=== PATIENT | male | born 1985 ===

== ENCOUNTER 2018-06-14 12:22 | Inpatient (IN) | payer SELFPAY ==
[2018-06-14] MEDS ORDERED: ATIVAN IV ONE ×2 (14:03→16:12)
--- NOTE | 2018-06-14 14:13 | Emergency Department Report ---
ED Seizure HPI - General Chief Complaint: Seizure Stated Complaint: SEIZURE/FALL Time Seen by Provider: 06/14/18 13:56 Source: patient, EMS Mode of arrival: Stretcher Limitations: Language Barrier - History of Present Illness Initial Comments: 33-year-old male with a past medical history of alcohol abuse presents to the hospital with complaint of new onset seizure. witnessed seizure. Patient followed onto the ground. No urinary incontinence. Mild tongue abrasion. Patient drinks beer daily. Last drink was yesterday. He was trying to decrease his alcohol intake. History of alcohol withdrawal tremors but no history of previous seizures. Patient complains of mild pain to the left side of his neck worse with movement. He denies headache, focal weakness, or numbness. - Related Data Allergies Allergy/AdvReac Type Severity Reaction Status Date / Time No Known Allergies Allergy Unverified 06/14/18 13:16 ED Review of Systems ROS: Stated complaint: SEIZURE/FALL Other details as noted in HPI Comment: All other systems reviewed and negative ED Past Medical Hx - Social History Smoking Status: Former Smoker Substance Use Type: Alcohol ED Physical Exam - General Limitations: Language Barrier - Other Other exam information: General: No limitations, patient is alert in no acute distress Head exam: Atraumatic, normocephalic Eyes exam: Normal appearance, pupils equal reactive to light, extraocular movements intact ENT: Moist mucous membrane, right lateral tongue abrasion Neck exam: Normal inspection, full range of motion, no meningismus nontender Respiratory exam: Clear to auscultation bilateral, no wheezes, rales, crackles Cardiovascular: Normal rate and rhythm, normal heart sounds Abdomen: Soft, nondistended, and nontender, with normal bowel sounds, no rebound, or guarding Extremity: Full range of motion normal inspection no deformity Back: Normal Inspection, full range of motion, no tenderness Neurologic: Alert, oriented x3, cranial nerves intact, no motor or sensory deficit, tremor noted Psychiatric: normal affect, normal mood Skin: Warm, dry, intact ED Course Vital Signs 06/14/18 13:11 Temperature 97.6 F Pulse Rate 74 Respiratory 18 Rate Blood Pressure 140/90 O2 Sat by Pulse 98 Oximetry - Reevaluation(s) Reevaluation #1: 06/14/18 18:22 pt developing delerium and therefore will be admitted ED Medical Decision Making - Lab Data Result diagrams: 06/14/18 13:54 06/14/18 13:54 Lab Results 06/14/18 06/14/18 06/14/18 Range/Units 13:54 13:54 14:19 WBC 4.2 L (4.5-11.0) K/mm3 RBC 4.17 (3.65-5.03) M/mm3 Hgb 14.2 (11.8-15.2) gm/dl Hct 42.2 (35.5-45.6) % MCV 101 H (84-94) fl MCH 34 H (28-32) pg MCHC 34 (32-34) % RDW 14.4 (13.2-15.2) % Plt Count 101 L (140-440) K/mm3 Sodium 137 (137-145) mmol/L Potassium 4.3 (3.6-5.0) mmol/L Chloride 96.5 L (98-107) mmol/L Carbon Dioxide 26 (22-30) mmol/L Anion Gap 19 mmol/L BUN 9 (9-20) mg/dL Creatinine 0.5 L (0.8-1.5) mg/dL Estimated GFR > 60 ml/min BUN/Creatinine Ratio 18 % Glucose 130 H (75-100) mg/dL Calcium 9.6 (8.4-10.2) mg/dL Magnesium 2.40 H (1.7-2.3) mg/dL Plasma/Serum Alcohol (0-0.07) % 06/14/18 Range/Units 14:19 WBC (4.5-11.0) K/mm3 RBC (3.65-5.03) M/mm3 Hgb (11.8-15.2) gm/dl Hct (35.5-45.6) % MCV (84-94) fl MCH (28-32) pg MCHC (32-34) % RDW (13.2-15.2) % Plt Count (140-440) K/mm3 Sodium (137-145) mmol/L Potassium (3.6-5.0) mmol/L Chloride (98-107) mmol/L Carbon Dioxide (22-30) mmol/L Anion Gap mmol/L BUN (9-20) mg/dL Creatinine (0.8-1.5) mg/dL Estimated GFR ml/min BUN/Creatinine Ratio % Glucose (75-100) mg/dL Calcium (8.4-10.2) mg/dL Magnesium (1.7-2.3) mg/dL Plasma/Serum Alcohol < 0.01 (0-0.07) % - EKG Data -: EKG Interpreted by Me EKG shows normal: sinus rhythm (68), axis (qrs 1), QRS complexes (qrsd 103), ST- T waves (no stemi/t inv) - EKG Data When compared to previous EKG there are: previous EKG unavailable - Radiology Data Radiology results: report reviewed CT head: No acute findings CT cervical spine non-contrast: No acute fracture - Medical Decision Making Patient given Ativan for elevated CIWA protocol. One hour post Ativan patient continues to have tremors and now is more agitated and delirious. States years 1985. Will be admitted to the hospitalist service for alcohol withdrawal seizures and delirium tremens. will continue CIWA protocol - Differential Diagnosis seizure, alcohol withdrawal, ICH, intracranial mass, electrolyte abnormalit Critical Care Time: No Critical care attestation.: If time is entered above; I have spent that time in minutes in the direct care of this critically ill patient, excluding procedure time. ED Disposition Clinical Impression: Alcohol withdrawal seizure, Alcohol dependence, Alcoholic delirium Disposition: OP ADMIT IP TO THIS HOSP Is pt being admited?: Yes Condition: Stable Time of Disposition: 18:22 (Dr adams/hosp)
[2018-06-14 14:14] LABS: Hematocrit 42.2 % (35.5-45.6); Hemoglobin 14.2 gm/dl (11.8-15.2); Mean Corpuscular HGB Conc 34 % (32-34); Mean Corpuscular Volume 101 fl (84-94); Platelet Count 101 K/mm3 (140-440); Red Blood Count 4.17 M/mm3 (3.65-5.03); Red Cell Distribution Width 14.4 % (13.2-15.2)
[2018-06-14 14:32] LABS: BUN/Creatinine Ratio 18; Blood Urea Nitrogen 9 mg/dL (9-20); Calcium 9.6 mg/dL (8.4-10.2); Hemolysis Index 17
--- NOTE | 2018-06-14 14:50 | Cat Scan Report ---
PROCEDURE: CT HEAD/BRAIN WO CON TECHNIQUE: Computerized tomography of the head was performed without contrast material. CT DOSE LENGTH PRODUCT: 928.9 mGycm HISTORY: seizure, fall, etoh withdrawal COMPARISONS: None . FINDINGS: Unenhanced CT of the brain was performed and demonstrates no acute intracranial hemorrhage, extra-axial fluid collection, midline shift or mass effect. The ventricles and basal cisterns are no t effaced. The mastoid air cells and middle ears appear clear. There is no evidence of acute sinusitis. The bony calvarium appears intact. IMPRESSION: No acute intracranial hemorrhage This document is electronically signed by Popeye Goodwin MD., June 14 2018 02:48:33 PM ET
--- NOTE | 2018-06-14 14:52 | Cat Scan Report ---
PROCEDURE: CT CERVICAL SPINE WO CON TECHNIQUE: Computerized tomography of the cervical spine was performed from the skull base to T1 wit hout contrast material. CT DOSE LENGTH PRODUCT: 726.1 mGycm HISTORY: seizure, fall, etoh withdrawal, left neck pain COMPARISONS: None . FINDINGS: Unenhanced CT of the cervical spine was performed and data was reformatted in the sagittal and coronal planes. These images demonstrate no fracture or malalignment of the cervical spine. The prevertebral soft tis sues are within normal limits. There is a vacuum disc at C5-C6. There is endplate remodeling at C5-C6. There is a Schmorl's node in the superior endplate of T3 and there are vacuum discs at T2-T3 and T3-T 4. IMPRESSION: No fracture is seen in the cervical spine This document is electronically signed by Popeye Goodwin MD., June 14 2018 02:50:56 PM ET
[2018-06-14] MEDS ORDERED: VITAMIN B-1 100 MG, FOLVITE 1 MG, INFUVITE 10 ML in NACL 0.9% 1000 ML 1,000 ML IV ONE (15:00)
[2018-06-14] MEDS: ATIVAN IV PRN ×2 (17:12→19:43)
[2018-06-14] MEDS ORDERED: PROVENTIL IH PRN (20:09)
[2018-06-14] MEDS ORDERED: ZOFRAN IV PRN (20:09)
[2018-06-14] MEDS ORDERED: TYLENOL PO PRN (20:09)
[2018-06-14] MEDS ORDERED: SODIUM CHLORIDE FLUSH SYRINGE 10 ML IV PRN (20:09)
[2018-06-14] MEDS ORDERED: THERAGRAN Tab PO ONE ×2 (20:13→22:51)
[2018-06-14] MEDS ORDERED: VITAMIN B-1 PO ONE (20:13)
--- NOTE | 2018-06-14 20:14 | History and Physical Report ---
History of Present Illness Chief complaint: He is confused, and he had a seizure History of present illness: 33 YO Male with ETOH Dependence presents to ED for evaluation. Pt is confused, tremulous and unable to provide detailed history. Pt history provided by his who is at bedside during exam and interview. As per , the patient drinks ETOH daily, but has significantly decreased hit ETOH intake over the pst 1 week. Pt last drink was yesterday. Pt has experienced increasing confusion and tremors over the past 1 day. Pt experienced a generalized seizure today as witnessed by his . Pt was standing, and experienced a fall from a standing position which resulted in an abrasion to the patient's tongue. EMS notified, and uopn arrival the patient was found to be in distress. Pt transported to [facility] ED. Pt seen and evaluated in ED and found to have ETOH Withdrawl complicated by seizure, as well as Encephalopathy. Pt admitted to medical floor, and treated IAW ETOH withdrawl protocol, as well as CIWA protocol. Pt counseled regarding ETOH Cessation. Pt and acknowledges understanding care plan, and agree with plan. No prior admissions for review. No medication listed at time of admission for reconciliatioin. Past History Past Medical History: other (ETOH Dependence) Past Surgical History: No surgical history, Other (reviewed) Social history: , lives with family, alcohol abuse Family history: no significant family history (reviewed) Medications and Allergies Allergies Allergy/AdvReac Type Severity Reaction Status Date / Time No Known Allergies Allergy Unverified 06/14/18 13:16 Active Meds: Active Medications Acetaminophen (Tylenol) 650 mg PO Q4H PRN PRN Reason: Pain MILD(1-3)/Fever >100.5/LEONARD Albuterol (Proventil) 2.5 mg IH Q4HRT PRN PRN Reason: Shortness Of Breath Famotidine (Pepcid) 20 mg PO BID YASMEEN Sodium Chloride (Nacl 0.45% 1000 Ml) 1,000 mls @ 100 mls/hr IV DIRECT YASMEEN Lorazepam (Ativan) 2 mg IV Q1HR PRN PRN Reason: YIFAN-Jeffrey 8-15 Last Admin: 06/14/18 19:43 Dose: 2 mg Documented by: Lorazepam (Ativan) 4 mg IV Q1HR PRN PRN Reason: CIMARLENE-Ar 16- Ondansetron HCl (Zofran) 4 mg IV Q8H PRN PRN Reason: Nausea And Vomiting Sodium Chloride (Sodium Chloride Flush Syringe 10 Ml) 10 ml IV BID YASMEEN Sodium Chloride (Sodium Chloride Flush Syringe 10 Ml) 10 ml IV PRN PRN PRN Reason: LINE FLUSH Review of Systems ROS unobtainable: due to mental status Exam - Constitutional Vitals: Temp Pulse Resp BP Pulse Ox 97.6 F 82 18 136/101 98 06/14/18 13:11 06/14/18 20:03 06/14/18 20:03 06/14/18 20:03 06/14/18 20:03 General appearance: Present: mild distress, disheveled - EENT Eyes: Present: PERRL, miosis ENT: hearing intact, clear oral mucosa - Neck Neck: Present: supple, normal ROM - Respiratory Respiratory effort: normal Respiratory: bilateral: CTA - Cardiovascular Heart Sounds: Present: S1 & S2. Absent: rub, click - Extremities Extremities: pulses symmetrical, No edema Peripheral Pulses: within normal limits - Abdominal General gastrointestinal: Present: soft, non-tender, non-distended, normal bowel sounds Male genitourinary: Present: normal - Integumentary Integumentary: Present: dry, clammy, decreased turgor - Musculoskeletal Musculoskeletal: generalized weakness - Psychiatric Psychiatric: no appropriate mood/affect, no intact judgment & insight, no memory intact, agitated, other (tremulous) - Neurologic Neurologic: CNII-XII intact, no focal deficits, moves all extremities, no gait normal Results - Labs CBC & Chem 7: 06/14/18 13:54 06/14/18 13:54 Labs: Abnormal lab results 06/14/18 06/14/18 06/14/18 Range/Units 13:54 13:54 14:19 WBC 4.2 L (4.5-11.0) K/mm3 MCV 101 H (84-94) fl MCH 34 H (28-32) pg Plt Count 101 L (140-440) K/mm3 Chloride 96.5 L (98-107) mmol/L Creatinine 0.5 L (0.8-1.5) mg/dL Glucose 130 H (75-100) mg/dL Magnesium 2.40 H (1.7-2.3) mg/dL Assessment and Plan - Patient Problems (1) Alcohol withdrawal seizure Current Visit: Yes Status: Acute Qualifiers: Complication of substance-induced condition: with delirium Qualified Code(s): F10.231 - Alcohol dependence with withdrawal delirium Plan to address problem: Banana bag, thiamine folic acid, multivitamin, IVF resuscitation therapy (2) Encephalopathy Current Visit: Yes Status: Acute Plan to address problem: CT Head, neuro checks, aspiration precautions, seizure precautions, treat ETOH withdrawl. (3) Alcohol dependence Current Visit: Yes Status: Acute Qualifiers: Complication of substance-induced condition: with perceptual disturbance Plan to address problem: IVF resuscitation therapy, ETOH cessation counseling, AA F/u at discharge (4) DVT prophylaxis Current Visit: Yes Status: Acute Plan to address problem: SCD to BLE while in bed, Prophylactic lovenox
[2018-06-14] MEDS ORDERED: VITAMIN B-1 ONE (22:52)
[2018-06-14] MEDS: FOLVITE PO SCH (22:55)
[2018-06-14] MEDS: SODIUM CHLORIDE FLUSH SYRINGE 10 ML IV SCH (22:57)
[2018-06-14] MEDS ORDERED: LOVENOX SUB-Q ONE (23:00)
[2018-06-14] MEDS ORDERED: PEPCID ONE (23:00)
[2018-06-14] MEDS: LOVENOX SUB-Q SCH (23:01)
[2018-06-14] MEDS: PEPCID PO SCH (23:01)
[2018-06-15] MEDS ORDERED: ATIVAN ONE ×4 (00:13→01:48)
[2018-06-15] MEDS: ATIVAN IV PRN ×8 (00:20→23:22)
[2018-06-15] MEDS ORDERED: HALDOL IM ONE ×2 (02:14→22:16)
[2018-06-15] MEDS ORDERED: HALDOL ONE (02:17)
[2018-06-15] MEDS: NACL 0.45% 1000 ML 1,000 ML IV SCH ×2 (04:48→15:18)
[2018-06-15 06:34] LABS: BUN/Creatinine Ratio 15; Blood Urea Nitrogen 6 mg/dL (9-20); Calcium 9.4 mg/dL (8.4-10.2); Hemolysis Index 7
--- NOTE | 2018-06-15 10:48 | Progress Note ---
Assessment and Plan Assessment and plan: 33 y.o. male with history of ETOH abuse presented to ED via EMS on 06/14 for evaluation. He was found to be confused, tremulous and unable to provide detailed history. History was provided by his who was at the bed side. As per , the patient drinks ETOH daily, but has significantly decreased his ETOH intake over the past 1 week. Pt last drink was on 06/13. Pt has experienced increasing confusion and tremors over the past 1 day. Pt experienced a generalized seizure on 06/14 as witnessed by his . Pt was standing, and experienced a fall from a standing position which resulted in an abrasion to the patient's tongue. Pt seen and evaluated in ED and found to have ETOH Withdrawl complicated by seizure, as well as Encephalopathy. Pt admitted to medical floor, and treated IAW ETOH withdrawl protocol, as well as CIWA protocol. ETOH Abuse ETOH Withdrawal Encephalopathy Hypokalemia Plan: Continue CIWA Protocol, seizure precautions CT Head on 06/14 did not reveal any acute intracranial hemorrhage CT Cervical Spine on 06/14 did not reveal any cervical spine fractures Replace potassium Continue oral Thiamine and folic acid Monitor electrolytes and replace as needed Continue to encourage ETOH cessation Will need Outpatient f/u with AA DVT PPX- on Lovenox History Interval history: Pt admitted for ETOH abuse/ withdrawal. No reports of seizures overnight. Remains on restraints. Hospitalist Physical - Constitutional Vitals: Temp Pulse Resp BP Pulse Ox 97.5 F L 79 18 149/101 97 06/15/18 04:30 06/15/18 04:30 06/15/18 04:30 06/15/18 04:30 06/15/18 04:30 General appearance: Present: mild distress, disheveled - EENT Eyes: Present: PERRL, EOM intact ENT: hearing intact, dentition normal - Neck Neck: Present: supple - Respiratory Respiratory effort: normal Respiratory: bilateral: CTA - Cardiovascular Heart Sounds: Present: S1 & S2 - Extremities Extremities: no ischemia, pulses intact Peripheral Pulses: within normal limits - Abdominal General gastrointestinal: soft, non-tender, normal bowel sounds - Integumentary Integumentary: Present: warm, dry - Psychiatric Psychiatric: agitated - Neurologic Neurologic: moves all extremities Results - Labs CBC & Chem 7: 06/14/18 13:54 06/15/18 05:20 Labs: Laboratory Last Values WBC 4.2 K/mm3 (4.5-11.0) L 06/14/18 13:54 RBC 4.17 M/mm3 (3.65-5.03) 06/14/18 13:54 Hgb 14.2 gm/dl (11.8-15.2) 06/14/18 13:54 Hct 42.2 % (35.5-45.6) 06/14/18 13:54 MCV 101 fl (84-94) H 06/14/18 13:54 MCH 34 pg (28-32) H 06/14/18 13:54 MCHC 34 % (32-34) 06/14/18 13:54 RDW 14.4 % (13.2-15.2) 06/14/18 13:54 Plt Count 101 K/mm3 (140-440) L 06/14/18 13:54 Sodium 139 mmol/L (137-145) 06/15/18 05:20 Potassium 3.4 mmol/L (3.6-5.0) L D 06/15/18 05:20 Chloride 100.6 mmol/L (98-107) 06/15/18 05:20 Carbon Dioxide 23 mmol/L (22-30) 06/15/18 05:20 Anion Gap 19 mmol/L 06/15/18 05:20 BUN 6 mg/dL (9-20) L 06/15/18 05:20 Creatinine 0.4 mg/dL (0.8-1.5) L 06/15/18 05:20 Estimated GFR > 60 ml/min 06/15/18 05:20 BUN/Creatinine Ratio 15 % 06/15/18 05:20 Glucose 102 mg/dL (75-100) H 06/15/18 05:20 Calcium 9.4 mg/dL (8.4-10.2) 06/15/18 05:20 Magnesium 2.00 mg/dL (1.7-2.3) 06/15/18 05:20 Plasma/Serum Alcohol < 0.01 % (0-0.07) 06/14/18 14:19 Active Medications - Current Medications Current Medications: Generic Name Dose Route Start Last Admin Trade Name Freq PRN Reason Stop Dose Admin Acetaminophen 650 mg 06/14/18 20:09 Tylenol PO Q4H PRN Pain MILD(1-3)/Fever >100.5/LEONARD Albuterol 2.5 mg 06/14/18 20:09 Proventil IH Q4HRT PRN Shortness Of Breath Enoxaparin Sodium 40 mg 06/14/18 22:00 06/14/18 23:01 Lovenox SUB-Q 40 mg QDAY@2200 YASMEEN Administration Famotidine 20 mg 06/14/18 22:00 06/14/18 23:01 Pepcid PO 20 mg BID YASMEEN Administration Folic Acid 1 mg 06/14/18 20:13 06/14/18 22:55 Folvite PO 1 mg QDAY YASMEEN Administration Sodium Chloride 1,000 mls @ 100 mls/hr 06/14/18 21:00 06/15/18 04:48 Nacl 0.45% 1000 Ml IV 100 mls/hr DIRECT YASMEEN Administration Lorazepam 2 mg 06/14/18 14:13 06/15/18 04:40 Ativan IV 2 mg Q1HR PRN Administration CIWA-Ar 8-15 Lorazepam 4 mg 06/14/18 14:13 06/15/18 01:52 Ativan IV 4 mg Q1HR PRN Administration CIWA-Ar 16-25 Ondansetron HCl 4 mg 06/14/18 20:09 Zofran IV Q8H PRN Nausea And Vomiting Potassium Chloride 40 meq 06/15/18 10:44 K-Dur PO 06/15/18 10:45 ONCE ONE Sodium Chloride 10 ml 06/14/18 22:00 06/14/18 22:57 Sodium Chloride Flush Syringe 10 Ml IV 10 ml BID YASMEEN Administration Sodium Chloride 10 ml 06/14/18 20:09 Sodium Chloride Flush Syringe 10 Ml IV PRN PRN LINE FLUSH
[2018-06-15] MEDS: FOLVITE PO SCH (11:09)
[2018-06-15] MEDS: PEPCID PO SCH ×2 (11:09→22:15)
[2018-06-15] MEDS ORDERED: K-DUR PO ONE (12:00)
[2018-06-15] MEDS: SODIUM CHLORIDE FLUSH SYRINGE 10 ML IV SCH ×2 (13:58→22:14)
[2018-06-15] MEDS: VITAMIN B-1 PO SCH (14:00)
[2018-06-15] MEDS: LOVENOX SUB-Q SCH (22:13)
[2018-06-16] MEDS: NACL 0.45% 1000 ML 1,000 ML IV SCH ×3 (03:05→23:08)
[2018-06-16] MEDS: ATIVAN IV PRN ×3 (05:44→23:09)
--- NOTE | 2018-06-16 09:53 | Progress Note ---
<MCKAYLA TAI - Last Filed: 06/16/18 09:53> Assessment and Plan Assessment and plan: 33 y.o. male with history of ETOH abuse presented to ED via EMS on 06/14 for evaluation. He was found to be confused, tremulous and unable to provide detailed history. History was provided by his who was at the bed side. As per , the patient drinks ETOH daily, but has significantly decreased his ETOH intake over the past 1 week. Pt last drink was on 06/13. Pt has experienced increasing confusion and tremors over the past 1 day. Pt experienced a generalized seizure on 06/14 as witnessed by his . Pt was standing, and experienced a fall from a standing position which resulted in an abrasion to the patient's tongue. He was found to have ETOH Withdrawl complicated by seizure, as well as Acute Encephalopathy. Pt admitted to medical floor, and treated for ETOH withdrawl protocol, as well as CIWA protocol. Acute toxic and metabolic Encephalopathy, Delirium Tremens Status Epilepticus Dehydration ETOH Abuse/ dependence ETOH Withdrawal Hypokalemia Plan: Continue CIWA Protocol, seizure precautions CT Head on 06/14 did not reveal any acute intracranial hemorrhage CT Cervical Spine on 06/14 did not reveal any cervical spine fractures Replaced potassium Monitor electrolytes and replace as needed Continue oral Thiamine and folic acid Continue to encourage ETOH cessation Will need Outpatient f/u with AA DVT PPX- on Lovenox History Interval history: Pt admitted for ETOH abuse/ withdrawal. No reports of seizures overnight. He is able tolerate diet. Remains on restraints. There were no acute overnight events. Hospitalist Physical - Constitutional Vitals: Temp Pulse Resp BP Pulse Ox 97.9 F 87 20 135/86 98 06/16/18 04:41 06/15/18 17:00 06/16/18 04:41 06/16/18 04:41 06/15/18 17:00 General appearance: Present: disheveled - EENT Eyes: Present: PERRL, EOM intact ENT: hearing intact, dentition normal - Respiratory Respiratory effort: normal Respiratory: bilateral: CTA - Cardiovascular Heart Sounds: Present: S1 & S2 - Extremities Extremities: pulses intact, No edema Peripheral Pulses: within normal limits - Abdominal General gastrointestinal: soft, non-tender, normal bowel sounds - Integumentary Integumentary: Present: warm, dry - Psychiatric Psychiatric: cooperative - Neurologic Neurologic: moves all extremities Results - Labs CBC & Chem 7: 06/14/18 13:54 06/15/18 05:20 Labs: Laboratory Last Values WBC 4.2 K/mm3 (4.5-11.0) L 06/14/18 13:54 RBC 4.17 M/mm3 (3.65-5.03) 06/14/18 13:54 Hgb 14.2 gm/dl (11.8-15.2) 06/14/18 13:54 Hct 42.2 % (35.5-45.6) 06/14/18 13:54 MCV 101 fl (84-94) H 06/14/18 13:54 MCH 34 pg (28-32) H 06/14/18 13:54 MCHC 34 % (32-34) 06/14/18 13:54 RDW 14.4 % (13.2-15.2) 06/14/18 13:54 Plt Count 101 K/mm3 (140-440) L 06/14/18 13:54 Sodium 139 mmol/L (137-145) 06/15/18 05:20 Potassium 3.4 mmol/L (3.6-5.0) L D 06/15/18 05:20 Chloride 100.6 mmol/L (98-107) 06/15/18 05:20 Carbon Dioxide 23 mmol/L (22-30) 06/15/18 05:20 Anion Gap 19 mmol/L 06/15/18 05:20 BUN 6 mg/dL (9-20) L 06/15/18 05:20 Creatinine 0.4 mg/dL (0.8-1.5) L 06/15/18 05:20 Estimated GFR > 60 ml/min 06/15/18 05:20 BUN/Creatinine Ratio 15 % 06/15/18 05:20 Glucose 102 mg/dL (75-100) H 06/15/18 05:20 Calcium 9.4 mg/dL (8.4-10.2) 06/15/18 05:20 Magnesium 2.00 mg/dL (1.7-2.3) 06/15/18 05:20 Plasma/Serum Alcohol < 0.01 % (0-0.07) 06/14/18 14:19 Active Medications - Current Medications Current Medications: Generic Name Dose Route Start Last Admin Trade Name Freq PRN Reason Stop Dose Admin Acetaminophen 650 mg 06/14/18 20:09 06/15/18 22:13 Tylenol PO 650 mg Q4H PRN Administration Pain MILD(1-3)/Fever >100.5/LEONARD Albuterol 2.5 mg 06/14/18 20:09 Proventil IH Q4HRT PRN Shortness Of Breath Enoxaparin Sodium 40 mg 06/14/18 22:00 06/15/18 22:13 Lovenox SUB-Q 40 mg QDAY@2200 YASMEEN Administration Famotidine 20 mg 06/14/18 22:00 06/15/18 22:15 Pepcid PO 20 mg BID YASMEEN Administration Folic Acid 1 mg 06/14/18 20:13 06/15/18 11:09 Folvite PO 1 mg QDAY YASMEEN Administration Sodium Chloride 1,000 mls @ 100 mls/hr 06/14/18 21:00 06/16/18 03:05 Nacl 0.45% 1000 Ml IV 100 mls/hr DIRECT YASMEEN Administration Lorazepam 2 mg 06/14/18 14:13 06/16/18 05:44 Ativan IV 2 mg Q1HR PRN Administration [facility]-Ar 8-15 Lorazepam 4 mg 06/14/18 14:13 06/15/18 20:49 Ativan IV 4 mg Q1HR PRN Administration [facility]-Ar 16-25 Ondansetron HCl 4 mg 06/14/18 20:09 Zofran IV Q8H PRN Nausea And Vomiting Sodium Chloride 10 ml 06/14/18 22:00 06/15/18 22:14 Sodium Chloride Flush Syringe 10 Ml IV 10 ml BID YASMEEN Administration Sodium Chloride 10 ml 06/14/18 20:09 Sodium Chloride Flush Syringe 10 Ml IV PRN PRN LINE FLUSH Thiamine HCl 100 mg 06/15/18 13:00 06/15/18 14:00 Vitamin B-1 PO 100 mg QDAY YASMEEN Administration <ANTONIA HOWE M - Last Filed: 06/16/18 15:20> Assessment and Plan Assessment and plan: I saw and evaluated the patient. I agree with the findings and the plan of care as documented in the Nurse Practitioner's Mckayla Tai note, with the following corrections and additions. patient is still in DT and will continue the [facility] protocol. Hospitalist Physical - Constitutional Vitals: Temp Pulse Resp BP Pulse Ox 98.3 F 70 16 136/81 98 06/16/18 12:02 06/16/18 12:02 06/16/18 12:02 06/16/18 12:02 06/16/18 12:02 Results - Labs CBC & Chem 7: 06/14/18 13:54 06/16/18 09:47 Labs: Laboratory Last Values WBC 4.2 K/mm3 (4.5-11.0) L 06/14/18 13:54 RBC 4.17 M/mm3 (3.65-5.03) 06/14/18 13:54 Hgb 14.2 gm/dl (11.8-15.2) 06/14/18 13:54 Hct 42.2 % (35.5-45.6) 06/14/18 13:54 MCV 101 fl (84-94) H 06/14/18 13:54 MCH 34 pg (28-32) H 06/14/18 13:54 MCHC 34 % (32-34) 06/14/18 13:54 RDW 14.4 % (13.2-15.2) 06/14/18 13:54 Plt Count 101 K/mm3 (140-440) L 06/14/18 13:54 Sodium 140 mmol/L (137-145) 06/16/18 09:47 Potassium 3.8 mmol/L (3.6-5.0) 06/16/18 09:47 Chloride 101.2 mmol/L (98-107) 06/16/18 09:47 Carbon Dioxide 23 mmol/L (22-30) 06/16/18 09:47 Anion Gap 20 mmol/L 06/16/18 09:47 BUN 9 mg/dL (9-20) 06/16/18 09:47 Creatinine 0.5 mg/dL (0.8-1.5) L 06/16/18 09:47 Estimated GFR > 60 ml/min 06/16/18 09:47 BUN/Creatinine Ratio 18 % 06/16/18 09:47 Glucose 125 mg/dL (75-100) H 06/16/18 09:47 Calcium 9.6 mg/dL (8.4-10.2) 06/16/18 09:47 Magnesium 2.00 mg/dL (1.7-2.3) 06/15/18 05:20 Plasma/Serum Alcohol < 0.01 % (0-0.07) 06/14/18 14:19 Active Medications - Current Medications Current Medications: Generic Name Dose Route Start Last Admin Trade Name Armandoq PRN Reason Stop Dose Admin Acetaminophen 650 mg 06/14/18 20:09 06/15/18 22:13 Tylenol PO 650 mg Q4H PRN Administration Pain MILD(1-3)/Fever >100.5/LEONARD Albuterol 2.5 mg 06/14/18 20:09 Proventil IH Q4HRT PRN Shortness Of Breath Enoxaparin Sodium 40 mg 06/14/18 22:00 06/15/18 22:13 Lovenox SUB-Q 40 mg QDAY@2200 YASMEEN Administration Famotidine 20 mg 06/14/18 22:00 06/16/18 09:58 Pepcid PO 20 mg BID YASMEEN Administration Folic Acid 1 mg 06/14/18 20:13 06/16/18 09:58 Folvite PO 1 mg QDAY YASMEEN Administration Sodium Chloride 1,000 mls @ 100 mls/hr 06/14/18 21:00 06/16/18 14:13 Nacl 0.45% 1000 Ml IV 100 mls/hr DIRECT YASMEEN Administration Lorazepam 2 mg 06/14/18 14:13 06/16/18 10:21 Ativan IV 2 mg Q1HR PRN Administration CIWA-Ar 8-15 Lorazepam 4 mg 06/14/18 14:13 06/15/18 20:49 Ativan IV 4 mg Q1HR PRN Administration CIWA-Ar 16-25 Ondansetron HCl 4 mg 06/14/18 20:09 Zofran IV Q8H PRN Nausea And Vomiting Sodium Chloride 10 ml 06/14/18 22:00 06/16/18 10:21 Sodium Chloride Flush Syringe 10 Ml IV 10 ml BID YASMEEN Administration Sodium Chloride 10 ml 06/14/18 20:09 Sodium Chloride Flush Syringe 10 Ml IV PRN PRN LINE FLUSH Thiamine HCl 100 mg 06/15/18 13:00 06/16/18 09:58 Vitamin B-1 PO 100 mg QDAY YASMEEN Administration
[2018-06-16] MEDS: PEPCID PO SCH ×2 (09:58→22:49)
[2018-06-16] MEDS: VITAMIN B-1 PO SCH (09:58)
[2018-06-16] MEDS: FOLVITE PO SCH (09:58)
[2018-06-16] MEDS: SODIUM CHLORIDE FLUSH SYRINGE 10 ML IV SCH ×2 (10:21→22:50)
[2018-06-16 10:38] LABS: BUN/Creatinine Ratio 18; Blood Urea Nitrogen 9 mg/dL (9-20); Calcium 9.6 mg/dL (8.4-10.2); Hemolysis Index 7
[2018-06-16] MEDS: LOVENOX SUB-Q SCH (22:49)
--- NOTE | 2018-06-17 10:35 | Discharge Summary ---
<DWAYNE TAI - Last Filed: 06/17/18 11:03> Providers - Providers Date of Admission: 06/14/18 20:09 Date of discharge: 06/17/18 Attending physician: ANTONIA HOWE MD 06/17/18 09:41 Physical Therapy Evaluation and Treat [CONS] Routine Comment: Reason For Exam: unsteady gait [facility] Reason for admission: Acute toxic and metabolic Encephalopathy, Condition: Fair Hospital course: 33 y.o. male with history of ETOH abuse presented to ED via EMS on 06/14 for evaluation. He was found to be confused, tremulous and unable to provide detailed history. History was provided by his who was at the bed side. As per , the patient drinks ETOH daily, but has significantly decreased his ETOH intake over the past 1 week. Pt last drink was on 06/13. Pt has experienced increasing confusion and tremors over the past 1 day. Pt experienced a generalized seizure on 06/14 as witnessed by his . Pt was standing, and experienced a fall from a standing position which resulted in an abrasion to the patient's tongue. He was found to have ETOH Withdrawl complicated by seizure, as well as Acute Encephalopathy. Pt admitted to medical floor, and treated for ETOH withdrawl protocol, as well as CIWA protocol. CT Head on 06/14 did not reveal any acute intracranial hemorrhage. CT Cervical Spine on 06/14 did not reveal any cervical spine fractures. He received IVF, and replacement for thiamine, folic acid, and potassium. Pt counseled for 16 minutes regarding alcohol cessation and outpatient AA. Diagnosis Acute toxic and metabolic Encephalopathy, Delirium Tremens Status Epilepticus Dehydration ETOH Abuse/ dependence ETOH Withdrawal Hypokalemia Disposition: DC-01 TO HOME OR SELFCARE Core Measure Documentation - Palliative Care Palliative Care/ Comfort Measures: Not Applicable - Core Measures Any of the following diagnoses?: none - VTE Discharge Requirements Deep Vein Thrombosis/Pulmonary Embolism Present on Admission: No Contraindication No Overlap Therapy order at DC: Not Indicated Exam - Physical Exam Narrative exam: General appearance: Present: no acute distress - EENT Eyes: Present: PERRL, EOM intact ENT: hearing intact, dentition normal - Respiratory Respiratory effort: normal Respiratory: bilateral: CTA - Cardiovascular Heart Sounds: Present: S1 & S2 - Extremities Extremities: mild tremors, pulses intact, No edema Peripheral Pulses: within normal limits - Abdominal General gastrointestinal: soft, non-tender, normal bowel sounds - Integumentary Integumentary: Present: warm, dry - Psychiatric Psychiatric: cooperative - Neurologic Neurologic: moves all extremities - Constitutional Vitals: Temp Pulse Resp BP Pulse Ox 98.4 F 63 20 137/91 95 06/17/18 04:57 06/17/18 04:57 06/17/18 04:57 06/16/18 22:26 06/17/18 04:57 Plan Activity: advance as tolerated, fall precautions Follow up with: CICI CORONEL MD [Primary Care Provider] - 3-5 Days Forms: Work/School Release Form Prescriptions: Folic Acid [Folvite] 1 mg PO QDAY 30 Days #30 tablet chlordiazePOXIDE [Librium] 25 mg PO Q8H 8 Days #26 capsule Thiamine [Vitamin B-1] 100 mg PO QDAY 30 Days #30 tablet <ANTONIA OHWE - Last Filed: 06/19/18 14:14> Providers - Providers Date of Admission: 06/14/18 20:09 Attending physician: ANTONIA HOWE MD [facility] Hospital course: I have evaluated face to face at the time of discharge and agreed with the documentation of SUSU Tai. patient admitted and treated for alcohol withdrawal. Exam - Constitutional Vitals: Temp Pulse Resp BP Pulse Ox 99.0 F 72 16 129/85 96 06/17/18 12:27 06/17/18 12:27 06/17/18 12:27 06/17/18 12:27 06/17/18 12:27
[2018-06-17 10:59] LABS: Alanine Aminotransferase 158 units/L (7-56); Albumin 3.8 g/dL (3.9-5); BUN/Creatinine Ratio 16; Blood Urea Nitrogen 8 mg/dL (9-20); Hemolysis Index 5
[2018-06-17] MEDS: VITAMIN B-1 PO SCH (11:45)
[2018-06-17] MEDS: FOLVITE PO SCH (11:45)
[2018-06-17] MEDS: PEPCID PO SCH (11:45)
[2018-06-17] MEDS: SODIUM CHLORIDE FLUSH SYRINGE 10 ML IV SCH (11:45)
[2018-06-17 12:50] VITALS: BP 129/85
== END 2018-06-17 14:00 | disposition home or self-care (01) | DRG 100 ==
LOC: EDBD → ED 12:22 → 3A 20:09
PROVIDERS: ADMIT Internal Medicine; ATTEND Internal Medicine
DX: G40.901 Epilepsy, unspecified, not intractable, with status epilepticus (principal); G92 Toxic encephalopathy; F10.231 Alcohol dependence with withdrawal delirium; F10.232 Alcohol dependence with withdrawal with perceptual disturbance; E86.0 Dehydration; E87.6 Hypokalemia; S00.512A Abrasion of oral cavity, initial encounter; Y90.9 Presence of alcohol in blood, level not specified; W18.39XA Other fall on same level, initial encounter; Z87.891 Personal history of nicotine dependence; Z71.41 Alcohol abuse counseling and surveillance of alcoholic; Y93.89 Activity, other specified; Y92.098 Other place in other non-institutional residence as the place of occurrence of the external cause; Y99.8 Other external cause status
CPT/HCPCS: 36415; 70450; 72125; 80048; 80053; 80320; 83735; 85027; 93005; 93010; 96374; 99285; G0378; G0480; J1630; J1650; J2060; J3411; J7030